=== PATIENT | female | born 1970 | race Caucasian/White ===

== ENCOUNTER 2016-07-26 09:19 | Day surgery (SDC) | payer OTHER ==
[~2016-07-26 09:19] MED LIST: ALEVE220 M4 PO; AZITHROMYCIN250 MG PO; BACTRIM DS TAB1 EAC2 PO; BENADRYL25 MG PO; CLARITIN10 M2 PO; CLEOCIN HCL300 M1 PO; CPAP; DILAUDID2 M1 PO; EPIPEN 2-P0.3 MG/0.3 IJ; EPIPEN0.3 MG/0.1 IM; FLEXERIL10 MG PO; GLIPIZIDE ER10 M1 PO; GLIPIZIDE ER10 MG PO; GLUCOPHAGE1000 M1 PO; GLUCOPHAGE500 MG/TAB PO; HYDROCODON-ACE1 EA16 PO; INDERAL40 MG PO; LANTUS SOL100 UNIT/1 SQ; LASIX20 MG PO; LEVOTHROID112 MCG PO; LEVOTHROID175 MCG PO; LEVOTHROID200 MCG PO; LEVOTHYROXINE200 MC4 PO; LORTAB 5/5001 EA PO; METFORMIN; METHIMAZOLE10 MG PO; NO MEDS; NORCO 5/325 TAB1 TAB PO; NORCO 7.5/325 T1 TAB PO; OS-CAL 500+D C1 EACH PO; OXYCODONE/APAP PO; PERCOCET 5/3251 TAB PO; PREDNISONE20 MG PO; PRINIVIL10 M1 PO; PROTONIX40 MG PO; REQUIP1 M1 PO; ROCALTROL0.25 MCG PO; SENNA PLUS TAB1 EAC1 PO; SIMVASTATIN5 MG PO; SULFAMETHOXAZO1 EAC5 PO; TOUJEO SOL300 UNIT/1 SC; TUMS500 MG PO; ULTRAM50 M1 PO; XARELTO10 M1 PO; ZOCOR5 M1 PO; ZOLOFT100 M1 PO; ZOLOFT100 MG PO; ZYRTEC10 MG PO
== END 2016-07-26 16:10 ==
LOC: SHSC 09:19 → ORW 11:32 → PACU 12:28 → SHSC 13:33
PROC: 0KBL0ZZ Excision of Left Abdomen Muscle, Open Approach (ICD-10-PCS; principal; 2016-07-26)
DX: I96 Gangrene, not elsewhere classified (principal); L02.211 Cutaneous abscess of abdominal wall; I10 Essential (primary) hypertension; E03.9 Hypothyroidism, unspecified; E11.9 Type 2 diabetes mellitus without complications; F32.9 Major depressive disorder, single episode, unspecified; F17.210 Nicotine dependence, cigarettes, uncomplicated; E66.01 Morbid (severe) obesity due to excess calories; Z88.8 Allergy status to other drugs, medicaments and biological substances; Z90.49 Acquired absence of other specified parts of digestive tract; Z98.890 Other specified postprocedural states
CPT/HCPCS: J0171; J1335; J1815; J3010

== ENCOUNTER 2016-09-06 09:04 | Day surgery (SDC) | payer OTHER ==
[2016-09-06 11:06] LABS: BASO % 0.7 % (0-2); BASO ABSOLUTE COUNT 0.1 tho/cmm (0.0-0.2); EOS % 3.7 % (0-7); EOSINOPHIL ABSOLUTE COUNT 0.4 tho/cmm (0.0-0.7); HGB-HEMOGLOBIN 12.4 gm/dl (12.0-15.5); IMMATURE GRANULOCYTES ABSOLUTE 0.02 tho/cmm (0-0.03); IMMATURE GRANULOCYTES PERCENT 0.2 % (0-0.3); LYMPH % 33.5 % (20-45); LYMPH ABSOLUTE COUNT 3.8 tho/cmm (0.8-4.5); MCH (MEAN CORPUSCULAR HGB) 28.4 pg (28.0-32.0); MCHC MEAN CORPUSCULAR HGB CONC 34.4 % (32.0-36.0); MCV (MEAN CELL VOLUME) 82.4 fl (82.0-96.0); MEAN PLATELET VOLUME 9.2 cmc (9.4-12.4); MONO % 6.4 % (0-12); MONOCYTE ABSOLUTE COUNT 0.7 tho/cmm (0.0-1.2); NEUTROPHIL ABSOLUTE COUNT 6.3 tho/cmm (1.6-8.0); NEUTROPHIL-AUTOMATED 6.3 tho/cmm (1.6-8.0); NEUTROPHILS % 55.5 % (40-80); PLATELET COUNT 408 tho/cmm (150-450); RED BLOOD COUNT 4.37 mil/cmm (4.00-5.20); RED CELL DISTRIBUTION WIDTH 13.2 % (12.4-16.4); WHITE BLOOD COUNT 11.3 tho/cmm (4.0-10.0)
[2016-09-06 11:15] LABS: ANION GAP 14 mmol/L (0-20); BLOOD UREA NITROGEN 21 mg/dl (6-24); CALCIUM 8.7 mg/dl (8.5-10.5); CARBON DIOXIDE-VENOUS 27 mmol/L (22-32); CHLORIDE 103 mmol/l (96-110); CREATININE 0.91 mg/dl (0.50-1.10); GLUCOSE 193 mg/dL (70-110); POTASSIUM 4.6 mmol/L (3.7-5.1); SODIUM 139 mmol/L (135-145); eGFR VALUE FOR BLACK 87 mL/Min
== END 2016-09-06 12:57 ==
LOC: SRG 09:04 → SHSB 09:08
PROVIDERS: Anesthesiology
PROC: 0JB80ZZ Excision of Abdomen Subcutaneous Tissue and Fascia, Open Approach (ICD-10-PCS; principal; 2016-09-06)
DX: S31.104A Unspecified open wound of abdominal wall, left lower quadrant without penetration into peritoneal cavity, initial encounter (principal); E66.01 Morbid (severe) obesity due to excess calories; E11.9 Type 2 diabetes mellitus without complications; I10 Essential (primary) hypertension; M19.90 Unspecified osteoarthritis, unspecified site; E03.9 Hypothyroidism, unspecified; F32.9 Major depressive disorder, single episode, unspecified; G47.30 Sleep apnea, unspecified; Z79.4 Long term (current) use of insulin; Z79.84 Long term (current) use of oral hypoglycemic drugs; Z79.899 Other long term (current) drug therapy; Z88.8 Allergy status to other drugs, medicaments and biological substances; Z91.013 Allergy to seafood; Z90.89 Acquired absence of other organs; Z90.49 Acquired absence of other specified parts of digestive tract; Z98.890 Other specified postprocedural states; Z99.89 Dependence on other enabling machines and devices
CPT/HCPCS: J0171; J3370; J7030